=== PATIENT | female | born 1955 | race Caucasian/White ===

== ENCOUNTER 2020-01-07 08:08 | Inpatient (IN) | payer MEDICAID, OTHER ==
[~2020-01-07] VITALS: Ht 160 cm; Wt 99.2 kg
[2020-01-07 09:14] LABS: MEAN CORPUSCULAR HEMOGLOBIN 31.3 pg (27.0-34.8); MEAN CORPUSCULAR HGB CONC 33.8 g/dL (32.4-35.8); MEAN CORPUSCULAR VOLUME 92.6 fL (80-100); MEAN PLATELET VOLUME 7.3 fL (7.4-10.4); PLATELET COUNT 348 x10^3/uL (130-400); RED BLOOD COUNT 4.53 x10^6/uL (3.82-5.3); RED CELL DISTRIBUTION WIDTH 12.9 % (9.6-15.2)
[2020-01-07 09:20] LABS: ANION GAP 6 mmol/L (5-15); CALCIUM 8.3 mg/dL (8.5-10.1); CHLORIDE 105 mmol/L (98-107)
[2020-01-07 09:22] LABS: ALANINE AMINOTRANSFERASE 24 U/L (12-78); ALKALINE PHOSPHATASE 85 U/L (45-117); BILIRUBIN,TOTAL 0.6 mg/dL (0.2-1.0); CREATININE 0.74 mg/dL (0.55-1.02); TOTAL PROTEIN 6.9 g/dL (6.4-8.2)
[2020-01-07 09:33] LABS: MD YES
[2020-01-07 09:35] LABS: BAND#(MANUAL) 2.41 x10^3/uL; BANDS%(MANUAL) 9 % (0-7); LYMPHS% (MANUAL) 3 % (22-44); MONOS#(MANUAL) 0.54 x10^3/uL (0.3-2.7); MONOS% (MANUAL) 2 % (2-9); SEG#(MANUAL) 23.05 x10^3/uL (1.8-6.8); SEGS% (MANUAL) 86 % (42-75)
[2020-01-07 09:36] LABS: <PLATELET ESTIMATE> ADEQUATE; <PLT MORPHOLOGY> NORMAL PLT MORPH; <RBC MORPHOLOGY> NORMAL
--- NOTE | 2020-01-07 09:54 | NUR ---
REPORT FROM YAJAIRA COLIN.
[2020-01-07] MEDS ORDERED: SODIUM CHLORIDE FLUSH 10ML SYR IVF ONE (10:00)
[2020-01-07] MEDS ORDERED: SODIUM CHLORIDE 0.9% 1,000ML IVBOLUS ONE (10:00)
--- NOTE | 2020-01-07 10:12 | NUR ---
OOB TO COMMODE. FEVER. TEARFUL ABOUT HER DOG. ASKING FOR PAIN MEDS. WILL NOTIFY
[2020-01-07] MEDS ORDERED: CEFTRIAXONE PMX 1GM/50ML 50 ML ONE (10:23)
[2020-01-07] MEDS ORDERED: HYDROmorphone 1 MG/ML, 1ML INJ ONE (10:24)
[2020-01-07] MEDS ORDERED: ACETAMINOPHEN 500 MG TABLET ONE (10:24)
[2020-01-07] MEDS ORDERED: CEFTRIAXONE PMX 1GM/50ML 50 ML IVPB ONE (10:30)
[2020-01-07] MEDS ORDERED: HYDROmorphone 2 MG/ML, 1ML IM PRN (10:30)
[2020-01-07] MEDS ORDERED: ACETAMINOPHEN 500 MG TABLET PO ONE (10:30)
--- NOTE | 2020-01-07 10:35 | NUR ---
PT BEING VERBALLY ABUSIVE TO THIS RN. PT STS "YOU'RE TERRIBLE. I'M IN PAIN AND YOURE NOT DOING ANYTHING ABOUT IT". RN IN ROOM TO GIVE PAIN MEDS, THIS RN SHOWED PT THE PAIN MEDS/TYLENOL/ABX AND EXPLAINED DELAY WAS DUE TO ASKING MD TO ORDER MEDS AND ASKING SECURITY TO GET PT'S CAR KEYS SO SHE CAN CALL A FRIEND. PT YELLING AT RN. ASKING FOR A DIFFERENT RN. STS "I'M GOING TO GET THE FUCK OUT OF HERE". MEDICATED FOR PAIN. ABX PER OCT. CALL [facility] IN REACH.
--- NOTE | 2020-01-07 10:50 | NUR ---
JIG AND FIXTURE REPAIRER NOTIFIED. JIG AND FIXTURE REPAIRER IN TO SPEAK W/ PT. REPORT TO ADITYA COLIN.
[2020-01-07] MEDS ORDERED: HYDROmorphone 2 MG/ML, 1ML IVPush PRN (11:00)
--- NOTE | 2020-01-07 11:13 | NUR ---
ASSUMED CARE. PT STATES PAIN IMPROVED SINCE MEDICATED FOR SAME. PT TO CT VIA NIKHIL
[2020-01-07] MEDS ORDERED: OMNIPAQUE 350 MG/ML, 100ML BOTTLE ONE (11:27)
--- NOTE | 2020-01-07 12:15 | NUR ---
HOSPITALIST AT BEDSIDE.
[2020-01-07] MEDS ORDERED: CLINDAMYCIN PMX 600MG/50ML 50 ML ONE (12:43)
[2020-01-07] MEDS: CLINDAMYCIN PMX 600MG/50ML 50 ML IV SCH ×2 (12:48→20:17)
[2020-01-07] MEDS: CEFTRIAXONE PMX 2GM/50ML 50 ML IV SCH (13:25)
--- NOTE | 2020-01-07 13:26 | NUR ---
ADMIT ROCEPHIN DOSE NOT ADMINISTERED PT RECEIVED ROCEPHIN ER ORDER TWO HOURS EARLIER
--- NOTE | 2020-01-07 14:00 | NUR ---
UOB TO COMMODE ABLE TO TURN AND PIVOT WITHOUT ASSISTANCE.
--- NOTE | 2020-01-07 15:12 | NUR ---
REPOR TO WALLACE GONSALEZ
[2020-01-07] MEDS ORDERED: ACETAMINOPHEN 325 MG TABLET PO PRN (17:00)
[2020-01-07] MEDS: HYDROcodone/APAP 5/325 TABLET PO PRN ×2 (17:07→21:24)
[2020-01-07] MEDS: ENOXAPARIN 40 MG/0.4 ML SQ SCH (18:00)
[2020-01-07] MEDS ORDERED: KETOROLAC 30 MG/1 ML IV PRN (18:00)
[2020-01-07] MEDS ORDERED: POTASSIUM CHLORIDE 10% 40 MEQ/30 ML UDC PO ONE (18:00)
[2020-01-07] MEDS: SODIUM CHLORIDE 0.9% 1,000 ML IV SCH (18:29)
[2020-01-07 18:42] VITALS: BP 103/60
[2020-01-07] MEDS ORDERED: POTASSIUM CHLORIDE 20 MEQ PACKET PO ONE (19:00)
[2020-01-07] MEDS ORDERED: VENL150C PO (20:08)
[2020-01-07] MEDS ORDERED: VENL75CA PO (20:08)
[2020-01-07] MEDS ORDERED: LEVO25TA4 PO (20:09)
[2020-01-07] MEDS ORDERED: TRIA1TAB5 PO (20:10)
[2020-01-07] MEDS ORDERED: TRAZ-175 PO (20:10)
[2020-01-07] MEDS: TRAZODONE 100MG TABLET PO SCH (21:24)
[2020-01-08 00:28] VITALS: BP 105/64
[2020-01-08] MEDS: CLINDAMYCIN PMX 600MG/50ML 50 ML IV SCH ×3 (04:32→19:59)
[2020-01-08] MEDS: HYDROcodone/APAP 5/325 TABLET PO PRN ×4 (05:27→21:38)
[2020-01-08] MEDS: LEVOTHYROXINE 25 MCG TABLET PO SCH (05:27)
[2020-01-08 05:58] LABS: BASOPHILS # (AUTO) 0.01 x10^3/uL (0-0.1); BASOPHILS % (AUTO) 0 % (0-1); EOSINOPHILS % (AUTO) 2 % (1-7); LYMPHOCYTES % (AUTO) 8 % (22-44); MD NO; MEAN CORPUSCULAR HEMOGLOBIN 30.9 pg (27.0-34.8); MEAN CORPUSCULAR VOLUME 93.4 fL (80-100); MEAN PLATELET VOLUME 7.7 fL (7.4-10.4); MONOCYTES # (AUTO) 1.31 x10^3/uL (0.2-0.8); MONOCYTES % (AUTO) 9 % (2-9); NEUTROPHILS # (AUTO) 11.86 x10^3/uL (1.8-6.8); NEUTROPHILS % (AUTO) 81 % (42-75); PLATELET COUNT 317 x10^3/uL (130-400); RED CELL DISTRIBUTION WIDTH 13.7 % (9.6-15.2)
[2020-01-08 06:24] LABS: CALCIUM 8.5 mg/dL (8.5-10.1); CHLORIDE 110 mmol/L (98-107)
[2020-01-08 06:34] LABS: ALANINE AMINOTRANSFERASE 19 U/L (12-78); ALBUMIN 2.5 g/dL (3.4-5.0); ALKALINE PHOSPHATASE 79 U/L (45-117); ANION GAP 7 mmol/L (5-15); BILIRUBIN,TOTAL 0.2 mg/dL (0.2-1.0); TOTAL PROTEIN 6.7 g/dL (6.4-8.2)
[2020-01-08 07:02] VITALS: BP 112/73
[2020-01-08] MEDS: VENLAFAXINE 75 MG CAP ER PO SCH (08:54)
[2020-01-08] MEDS: SODIUM CHLORIDE 0.9% 1,000 ML IV SCH (08:54)
[2020-01-08] MEDS: TRIAMTERENE/HCTZ 75/50MG TABLET PO SCH (08:54)
[2020-01-08] MEDS ORDERED: VENLAFAXINE 75 MG CAP ER PO SCH (09:00)
[2020-01-08 13:26] VITALS: BP 111/72
[2020-01-08] MEDS: CEFTRIAXONE PMX 2GM/50ML 50 ML IV SCH (13:29)
[2020-01-08] MEDS: ENOXAPARIN 40 MG/0.4 ML SQ SCH (17:40)
[2020-01-08 19:43] VITALS: BP 112/71
[2020-01-08] MEDS: TRAZODONE 100MG TABLET PO SCH (21:38)
[2020-01-09 01:10] VITALS: BP 95/59
[2020-01-09] MEDS: SODIUM CHLORIDE 0.9% 1,000 ML IV SCH (01:35)
[2020-01-09] MEDS: HYDROcodone/APAP 5/325 TABLET PO PRN ×2 (01:35→05:14)
[2020-01-09] MEDS: CLINDAMYCIN PMX 600MG/50ML 50 ML IV SCH ×2 (05:14→15:11)
[2020-01-09] MEDS: LEVOTHYROXINE 25 MCG TABLET PO SCH (05:14)
[2020-01-09 06:00] LABS: BASOPHILS # (AUTO) 0.08 x10^3/uL (0-0.1); BASOPHILS % (AUTO) 1 % (0-1); EOSINOPHILS # (AUTO) 0.33 x10^3/uL (0-0.4); EOSINOPHILS % (AUTO) 4 % (1-7); LYMPHOCYTES # (AUTO) 1.04 x10^3/uL (1-3.4); LYMPHOCYTES % (AUTO) 12 % (22-44); MD NO; MEAN CORPUSCULAR HGB CONC 33.1 g/dL (32.4-35.8); MEAN CORPUSCULAR VOLUME 93.6 fL (80-100); MEAN PLATELET VOLUME 7.5 fL (7.4-10.4); MONOCYTES # (AUTO) 0.65 x10^3/uL (0.2-0.8); MONOCYTES % (AUTO) 7 % (2-9); NEUTROPHILS # (AUTO) 6.71 x10^3/uL (1.8-6.8); NEUTROPHILS % (AUTO) 76 % (42-75); PLATELET COUNT 335 x10^3/uL (130-400); RED BLOOD COUNT 4.07 x10^6/uL (3.82-5.3); RED CELL DISTRIBUTION WIDTH 13.8 % (9.6-15.2)
[2020-01-09 06:05] LABS: CHLORIDE 111 mmol/L (98-107)
[2020-01-09 06:12] LABS: ALANINE AMINOTRANSFERASE 21 U/L (12-78); ALBUMIN 2.3 g/dL (3.4-5.0); ALKALINE PHOSPHATASE 68 U/L (45-117); ANION GAP 5 mmol/L (5-15); BILIRUBIN,TOTAL 0.3 mg/dL (0.2-1.0); CALCIUM 8.1 mg/dL (8.5-10.1); CREATININE 0.56 mg/dL (0.55-1.02); TOTAL PROTEIN 6.3 g/dL (6.4-8.2)
[2020-01-09 08:16] VITALS: BP 112/72
[2020-01-09] MEDS ORDERED: OXYcodone/APAP 5/325MG TABLET PO PRN (09:30)
[2020-01-09] MEDS: VENLAFAXINE 75 MG CAP ER PO SCH (10:24)
[2020-01-09] MEDS: TRIAMTERENE/HCTZ 75/50MG TABLET PO SCH (10:25)
[2020-01-09] MEDS: CEFTRIAXONE PMX 2GM/50ML 50 ML IV SCH (12:41)
[2020-01-09] MEDS ORDERED: LACT1CAP35 PO (13:05)
[2020-01-09] MEDS ORDERED: CLIN300C8 PO (13:05)
[2020-01-09] MEDS ORDERED: ACET325T26 PO (13:05)
[2020-01-09] MEDS ORDERED: CEFD300C37 PO (13:05)
[2020-01-09 14:41] VITALS: BP 105/69
[2020-01-09] MEDS ORDERED: OXYC-302 PO (17:03)
== END 2020-01-09 17:48 | disposition home or self-care (01) | DRG 872 ==
LOC: ED 09:32 → EDIP 10:53 → 3N 15:43
PROVIDERS: ADMIT Internal Medicine; ATTEND Internal Medicine
DX: A41.9 Sepsis, unspecified organism (principal); L03.116 Cellulitis of left lower limb; B34.9 Viral infection, unspecified; E03.9 Hypothyroidism, unspecified; E78.5 Hyperlipidemia, unspecified; E87.6 Hypokalemia; F41.9 Anxiety disorder, unspecified; Z86.718 Personal history of other venous thrombosis and embolism; Q82.0 Hereditary lymphedema; Z88.0 Allergy status to penicillin
CPT/HCPCS: 36415; 71045; 71275; 80053; 83605; 85025; 85379; 87040; 96361; 96365; G0378; J0696; J1170; Q9967; J7030